=== PATIENT | female | born 1960 | race Caucasian/White ===

== ENCOUNTER 2017-08-15 21:01 | Emergency (ER) | payer BC ==
[2017-08-15 21:31] VITALS: BP 130/76
[2017-08-15] MEDS ORDERED: Lidocain 1% EPI 1:100,000 * 30 ML MDV INJ ONE (21:56)
[2017-08-15] MEDS ORDERED: Lidocaine 1% MPF wEPI 200,000* 30 ML SDV ONE (22:00)
--- NOTE | 2017-08-15 22:00 | UC ---
Laceration HPI - HPI Summary HPI Summary: Cut hand left hand cutting cauliflour - History Of Current Complaint Chief Complaint: UCLaceration Stated Complaint: LACERATION LEFT HAND Time Seen by Provider: 08/15/17 21:52 Hx Obtained From: Patient Laceration Location: Hand - left hand, palm Mechanism Of Injury: Sharp Trauma - kitchen knife Onset/Duration: Sudden Onset - 7:15 PM Severity: Moderate Aggravating Factors: Movement - Allergies/Home Medications Allergies/Adverse Reactions: Allergies Allergy/AdvReac Type Severity Reaction Status Date / Time Penicillins Allergy Hives Verified 08/15/17 21:31 Sulfamethoxazole Allergy Fever Verified 08/15/17 21:31 w/Trimethoprim [From Bactrim] Home Medications: Home Medications FLUoxetine* [PROzac*] 30 mg PO DAILY 08/15/17 [History Confirmed 08/15/17] Methimazole TAB* [Tapazole TAB*] 10 mg PO DAILY 08/15/17 [History Confirmed ] Metoprolol Tartrate TAB* [Lopressor TAB*] 12.5 mg PO DAILY 08/15/17 [History Confirmed 08/15/17] PMH/Surg Hx/FS Hx/Imm Hx Endocrine History: Thyroid Disease - Surgical History Surgical History: Yes Surgery Procedure, Year, and Place: back surgery. 2 c sections - Family History Known Family History: Positive: Cardiac Disease, Hypertension, Diabetes - Social History Occupation: Employed Full-time Lives: With Family Alcohol Use: Weekly Substance Use Type: None Smoking Status (MU): Never Smoked Tobacco Review of Systems Gastrointestinal: Diarrhea - from antibiotics from cat bite. Is Patient Immunocompromised?: No All Other Systems Reviewed And Are Negative: Yes Physical Exam Triage Information Reviewed: Yes Appearance: Well-Appearing, No Pain Distress, Well-Nourished Vital Signs: Initial Vital Signs Temp 99.0 F 08/15/17 21:25 Pulse 55 08/15/17 21:25 Resp 16 08/15/17 21:25 BP 130/76 08/15/17 21:25 Pulse Ox 99 08/15/17 21:25 Vital Signs Reviewed: Yes Eyes: Positive: Conjunctiva Clear Neck exam: Normal Respiratory Exam: Normal Cardiovascular Exam: Normal Musculoskeletal Exam: Normal Neurological Exam: Normal Psychological Exam: Normal Skin: Positive: Other - laceration left hand Laceration Repair - Laceration Repair 1 Description: Linear Laceration Size After Repair: Length (cm) - 1.5 Modified For Repair: No Type Injection: Local Anesthesia Used: 1.0% Lido Additive Used (in ml): Epi Cleansing Completed Via Routine Prep: Yes Irrigation With Pressure Irrigation Device: Yes Closure Material: Sutures Closure Method: Single Layer Suture Of: Skin - running 6 sutures Suture Type: Nylon - 4-0 Laceration Course/Dx - Differential Dx - Laceration/Wound Differental Diagnoses: Abrasion, Cellulitis, Laceration, Puncture Wound Provider Diagnoses: Laceration Left hand Discharge - Discharge Plan Condition: Stable Disposition: HOME Patient Education Materials: Laceration (ED), Care For Your Stitches (ED) Additional Instructions: Follow up in 10 days for suture removal. Keep the wound covered and apply antibiotic ointment twice a day. Images Hands: 1 - 1.5cm laceration
[2017-08-15] MEDS ORDERED: Lidocaine 1% MPF wEPI 200,000* 30 ML SDV INJ ONE (22:01)
== END 2017-08-15 22:27 | disposition home or self-care (01) ==
LOC: UCCORT 21:01
DX: S61.412A Laceration without foreign body of left hand, initial encounter (principal); W26.0XXA Contact with knife, initial encounter; Y93.G1 Activity, food preparation and clean up; Y92.9 Unspecified place or not applicable; Z88.0 Allergy status to penicillin; Z88.2 Allergy status to sulfonamides; E07.9 Disorder of thyroid, unspecified
CPT/HCPCS: 12001; 99201; G0463; J2001